=== PATIENT | male | born 1985 | race Caucasian/White ===

== ENCOUNTER 2022-07-09 21:33 | Emergency (ER) | payer OTHER, MEDICAID, SELFPAY ==
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
[2022-07-09 22:00] VITALS: BP 158/94; PULSE 85; O2SAT 98
[2022-07-09 22:20] VITALS: BP 143/80; PULSE 81; RESP 18; TEMP 36.6; O2SAT 95; BMI 26.6
[2022-07-09 22:25] VITALS: RESP 18
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
[2022-07-09] MEDS: Ibuprofen 600 MG TABLET PO (22:46)
[2022-07-10 00:39] VITALS: BP 118/72; PULSE 64; RESP 18; O2SAT 96
== END 2022-07-10 00:57 | disposition home or self-care (01) ==
PROVIDERS: Emergency Provider Emergency Medicine
DX: M54.50 Low back pain, unspecified (principal)
CPT/HCPCS: 72100; 99283; 99284